=== PATIENT | female | born 1955 | race Caucasian/White ===

== ENCOUNTER → 2016-07-13 | Outpatient (CLI) | payer BC ==
[~2016-07-13] MED LIST: ATV5 PO; CALC500C70 PO; FEXO1TAB49 PO; FLUO20CA35 PO; GLUC10007 PO; MOME50SP5 NAE; OMEGCAP2 PO; OMEP40CA PO; ZNTT/150 PO
== END | disposition home or self-care (01) ==
LOC: C.LAB 13:23
PROVIDERS: ATTEND Orthopaedic Surgery
DX: Z47.1 Aftercare following joint replacement surgery (principal); Z96.643 Presence of artificial hip joint, bilateral

== ENCOUNTER → 2016-12-17 | Outpatient (CLI) | payer BC ==
--- NOTE | 2016-12-17 16:37 | DIAGNOSTIC IMAGING REPORT ---
PELVIS 1 OR 2 VIEW ROUTINE CLINICAL HISTORY: Fall. COMPARISON STUDY: Pelvis radiograph May 09, 2010. FINDINGS: There are stable postoperative findings consistent with bilateral hip resurfacing. Hardware is intact. No acute fracture is identified within the pelvis or hips. Sacroiliac joints and symphysis pubis are intact. IMPRESSION: 1. No acute fracture within the pelvis or hips. 2. Stable postoperative findings consistent with bilateral hip resurfacing. Electronically signed by: Cody Bergeron M.D. 12/17/2016 4:35 PM Dictated Date/Time: 12/17/2016 4:33 PM
== END | disposition home or self-care (01) ==
LOC: C.RAD 16:03
PROVIDERS: ATTEND Internal Medicine
DX: R10.2 Pelvic and perineal pain (principal); W19.XXXA Unspecified fall, initial encounter

== ENCOUNTER → 2017-03-22 | Day surgery (SDC) | payer BC ==
[2017-03-10 07:40] VITALS: Ht 168.9 cm; Wt 68.2 kg
[~2017-03-22] VITALS: Ht 168.9 cm; Wt 68.2 kg
[~2017-03-22] MED LIST changes: +AFRINWC; +ASCA500 PO; +ASPI81TA28 PO; +ATROPINE SULFATE 0.1 MG/ML 5ML SYR IV PRN; -ATV5 PO; +CYAN10005 PO; +DEXTCAP23 PO; +EpHEDrine SULFATE INJ 50 MG/ML AMP IV PRN; +FAMO40TA6 PO; +FENTANYL CITRATE INJ 50 MCG/1 ML 2 ML VIAL ONE; -FEXO1TAB49 PO; -FLUO20CA35 PO; +FLUO40CA8 PO; -GLUC10007 PO; +LIDOCAINE HCL 2% 2 ML VIAL (20MG/ML) ONE; +LORA-741 PO; +LOSA50TA54 PO; -MOME50SP5 NAE; +MOME6000 NEB; -OMEP40CA PO; +PROB1TAB16 PO; +PROPOFOL IV EMULSION 10 MG/ML 20 ML VIAL IV ONE; +PSEU60TA80 PO; +TRIA37.5 PO; +VNTHFA/IN INH; -ZNTT/150 PO
--- NOTE | 2017-03-22 15:03 | Endo History and Physical ---
History & Physical Date of Service: Mar 22, 2017. Chief Complaint: Cough, heartburn Referring Physician: Dr Scooby Marks History of Present Illness For EGD with Nieto placement Past Medical History Arthritis, Gastrointestinal Disorder, Anxiety, Reflux, Sleep Apnea, Depression Past Surgical History Hx Cardiac Surgery: No Hx Internal Defibrillator: No Hx Pacemaker: No Hx Abdominal Surgery: No Hx of Implantable Prosthesis: No Hx Post-Op Nausea and Vomiting: No Hx Cancer Surgery: No Hx Thoracic Surgery: No Hx Orthopedic: Yes (LT/RT HIP SURGERY, LT KNEE SCOPE) Hx Urinary Tract Surgery: No Family History Colon CA Social History Smoking Status: Never Smoker Hx Substance Use: No Hx Alcohol Use: Yes (1 DRINK ~5X/WEEK) Allergies Coded Allergies: Adhesives (Verified Allergy, Intermediate, SEVERE BLISTERS, 03/10/17) Cat Dander (Verified Allergy, Intermediate, BRONCHITIS, 03/10/17) NO KNOWN DRUG ALLERGIES (Verified Allergy, Unknown, ., 03/10/17) Latex1 -Allergic Contact Dermititis (Verified Adverse Reaction, Unknown, ITCHING, 03/10/17) Current Medications Reported Home Medications Medications Dose Route/Sig Max Daily Dose Days Date Category Dyazide 37.5MG/25MG (Triamterene/HCTZ) Cap 1 Cap PO DAILY 30 03/22/17 Reported Aspirin Ec (Aspirin) 81 Mg Tab 81 Mg PO DAILY 03/10/17 Reported Afrin 0.05% Nasal [place] (Oxymetazoline Hcl) 1 Btl [place] 1 [place] NA HS PRN 03/10/17 Reported Ventolin Hfa (Albuterol) 200 Puffs/16236 Mcg Aers 2-4 Puffs INH Q6H PRN 03/10/17 Reported Mucinex D (Pseudoephedrine-Guaifenesin) 1 Tab Tab 1 Tab PO BID PRN 03/10/17 Reported Coricidin Hbp Chest Conge (Dextromethorphan-Guaifenesin) 1 Cap Cap 1 Cap PO UD PRN 03/10/17 Reported Pepcid (Famotidine) 40 Mg Tab 40 Mg PO BID 03/10/17 Reported Probiotic (Probiotic Product) 1 Tab Tab 1 Tab PO DAILY 03/10/17 Reported Vitamin B-12 (Cyanocobalamin) 1,000 Mcg Tab 1,000 Mcg PO DAILY 03/10/17 Reported Vitamin C (Ascorbic Acid) 500 Mg Tab 1 Tab PO DAILY 03/10/17 Reported Cozaar (Losartan Potassium) 50 Mg Tab 50 Mg PO QAM 03/10/17 Reported Mometasone Furoate (Mometasone Furoate (Nasal)) 50 Mcg/Act Spr 2 [place] NEB DAILY PRN 03/10/17 Reported Ativan (Lorazepam) 0.5 Mg Tab 0.5 Mg PO Q6H PRN 03/10/17 Reported Prozac (Fluoxetine HCl) 40 Mg Cap 40 Mg PO QAM 03/10/17 Reported Fish Oil ([place]-3 Fatty Acids) 1 Cap Cap 1 Cap PO QAM 06/14/15 Reported Os-Faheem 500 Plus D (Calcium/Vitamin D) Tab 1 Tab PO BID 06/14/15 Reported Vital Signs Weight (Kilograms): 68.18 Height (Feet): 5 Height (Inches): 6.5 Physical Exam General Appearance: WD/WN Respiratory/Chest: Respiratory effort: no dyspnea Cardiovascular: Heart Auscultation: RRR Abdomen: Inspection & Palpation: soft Assessment and Plan Cough, heartburn for EGD with Nieto placement
--- NOTE | 2017-03-22 15:20 | Discharge Instructions ---
Endoscopy Patient Instructions Date / Procedure(s) Performed Mar 22, 2017. EGD Allergy Information Coded Allergies: Adhesives (Verified Allergy, Intermediate, SEVERE BLISTERS, 03/10/17) Cat Dander (Verified Allergy, Intermediate, BRONCHITIS, 03/10/17) NO KNOWN DRUG ALLERGIES (Verified Allergy, Unknown, ., 03/10/17) Latex1 -Allergic Contact Dermititis (Verified Adverse Reaction, Unknown, ITCHING, 03/10/17) Discharge Date / Findings Mar 22, 2017. Normal EGD with Nieto placement Medication Instructions Stopped Medication(s): Patient was told to hold her aspirin and antacids. Restart Stopped Medication(s): hold acid reducing meds for next 48 h Reported Home Medications Medications Dose Route/Sig Max Daily Dose Days Date Category Dyazide 37.5MG/25MG (Triamterene/HCTZ) Cap 1 Cap PO DAILY 30 03/22/17 Reported Aspirin Ec (Aspirin) 81 Mg Tab 81 Mg PO DAILY 03/10/17 Reported Afrin 0.05% Nasal [place] (Oxymetazoline Hcl) [address] [place] [address] [place] [address] NA HS PRN 03/10/17 Reported Ventolin Hfa (Albuterol) 200 Puffs/23271 Mcg Aers 2-4 Puffs INH Q6H PRN 03/10/17 Reported Mucinex D (Pseudoephedrine-Guaifenesin) 1 Tab Tab 1 Tab PO BID PRN 03/10/17 Reported Coricidin Hbp Chest Conge (Dextromethorphan-Guaifenesin) 1 Cap Cap 1 Cap PO UD PRN 03/10/17 Reported Pepcid (Famotidine) 40 Mg Tab 40 Mg PO BID 03/10/17 Reported Probiotic (Probiotic Product) 1 Tab Tab 1 Tab PO DAILY 03/10/17 Reported Vitamin B-12 (Cyanocobalamin) 1,000 Mcg Tab 1,000 Mcg PO DAILY 03/10/17 Reported Vitamin C (Ascorbic Acid) 500 Mg Tab 1 Tab PO DAILY 03/10/17 Reported Cozaar (Losartan Potassium) 50 Mg Tab 50 Mg PO QAM 03/10/17 Reported Mometasone Furoate (Mometasone Furoate (Nasal)) 50 Mcg/Act Spr [address] [place] [address] NEB DAILY PRN 03/10/17 Reported Ativan (Lorazepam) 0.5 Mg Tab 0.5 Mg PO Q6H PRN 03/10/17 Reported Prozac (Fluoxetine HCl) 40 Mg Cap 40 Mg PO QAM 03/10/17 Reported Fish Oil ([place]-3 Fatty Acids) 1 Cap Cap 1 Cap PO QAM 06/14/15 Reported Os-Faheem 500 Plus D (Calcium/Vitamin D) Tab 1 Tab PO BID 06/14/15 Reported Provider Instructions Activity Restrictions - No exercising or heavy lifting for 24 hours. - Do not drink alcohol the day of the procedure. - Do not drive a car or operate machinery until the day after the procedure. - Do not make any important decisions or sign important papers in 24 hours after the procedure. Following Day: - Return to full activity which may include returning to work/school. Diet Start your diet with liquids and light foods (jello, soup, juice, toast). Then eat your usual diet if not nauseated. Treatment For Common After Affects For mild abdominal pain, bloating, or excessive gas: - Rest - Eat lightly - Lie on right side Follow-Up Information Follow-up with Dr. Scooby Marks as scheduled Anesthesia Information What You Should Know You have had a procedure that required some medicine to reduce anxiety and discomfort. This treatment is called moderate sedation. After receiving the treatment, you may be sleepy, but you will be able to breathe on your own. The effects of the treatment may last for several hours. Follow these instructions along with Activity/Diet recommendations noted above: * Do NOT do anything where dizziness or clumsiness would be dangerous. * Rest quietly at home today, then you can be up and about tomorrow. * Have a responsible person stay with you the rest of today. * You may have had an I.V. today. If so, you may take the dressing off later today. Recommendations Call your doctor if: * Trouble breathing * Continuous vomiting for more than 24 hours * Temperature above 101 degrees * Severe abdominal pain or bloating * Pain not relieved by pain medicine ordered * There is increased drainage or redness from any incision * A large amount of rectal bleeding greater than 2-3 tablespoons. (If you had a polyp/s removed or have hemorrhoids, a small amount of blood - from the rectum is to be expected.) * You have any unanswered questions or concerns. IN THE EVENT OF A SERIOUS EMERGENCY, GO TO THE NEAREST EMERGENCY ROOM Your discharge instructions were prepared by provider Alexis Madrigal. Patient Instructions Signature Page Marlena Staleyer Patient (or Guardian) Signature/Date: I have read and understand the instructions given to me by my caregivers. Caregiver/RN/Doctor Signature/Date: The above-named patient and/or guardian has received patient instructions on this date. + Original Patient Signature Page (only) stays with chart. Please make copy for patient.
--- NOTE | 2017-03-22 15:24 | GI REPORT ---
Procedure Date: 03/22/2017 3:08 PM Procedure: Upper GI endoscopy Indications: Heartburn, Chronic cough Medicines: Fentanyl 100 micrograms IV, Propofol total dose 150 mg IV, Lidocaine 40 mg IV Complications: No immediate complications. Estimated Blood Loss: Estimated blood loss: none. Procedure: Pre-Anesthesia Assessment: - Prior to the procedure, a History and Physical was performed, and patient medications, allergies and sensitivities were reviewed. The patient's tolerance of previous anesthesia was reviewed. - The risks and benefits of the procedure and the sedation options and risks were discussed with the patient. All questions were answered and informed consent was obtained. After obtaining informed consent, the endoscope was passed under direct vision. Throughout the procedure, the patient's blood pressure, pulse, and oxygen saturations were monitored continuously. The scope was introduced through the mouth, and advanced to the second part of duodenum. The upper GI endoscopy was accomplished without difficulty. The patient tolerated the procedure well. Findings: The Z-line was regular and was found 40 cm from the incisors. The COOK capsule with delivery system was introduced through the mouth and advanced into the esophagus, such that the COOK pH capsule was positioned 34 cm from the incisors, which was 6 cm proximal to the GE junction. The COOK pH capsule was then deployed and attached to the esophageal mucosa. The delivery system was then withdrawn. Endoscopy was utilized for probe placement and diagnostic evaluation. The entire examined stomach was normal. The examined duodenum was normal. Impression: - Z-line regular, 40 cm from the incisors. - Normal stomach. - Normal examined duodenum. - The COOK pH capsule was deployed. - No specimens collected. Recommendation: - Discharge patient to home (ambulatory). - Discontinue Prilosec (omeprazole) for 48 h. - Return to primary care physician MITRAN. Alexis Madrigal M.D. Alexis Madrigal MD 03/22/2017 3:24:05 PM This report has been signed electronically. Note Initiated On: 03/22/2017 3:08 PM I attest to the content of the Intraoperative Record and orders documented therein, exceptions below
--- NOTE | 2017-03-22 15:25 | Anesthesiology Progress Note ---
Anesthesia Post Op Note Date & Time Mar 22, 2017 at 15:25 Vital Signs Pain Intensity: 0 Vital Signs Past 12 Hours Date Time Temp Pulse Resp B/P (MAP) Pulse Ox O2 Delivery O2 Flow Rate FiO2 03/22/17 14:58 36.7 62 18 145/93 (110) 94 Room Air Notes Mental Status: alert / awake / arousable, participated in evaluation Pt Amnestic to Procedure: Yes Nausea / Vomiting: adequately controlled Pain: adequately controlled Airway Patency, RR, SpO2: stable & adequate BP & HR: stable & adequate Hydration State: stable & adequate Anesthetic Complications: no major complications apparent
[2017-03-22 15:52] VITALS: BP 138/91; PULSE 50; TEMP 36.7; O2SAT 98
== END | disposition home or self-care (01) ==
LOC: C.GI 14:16
PROVIDERS: ATTEND Internal Medicine Gastroenterology
DX: K21.9 Gastro-esophageal reflux disease without esophagitis (principal); G47.33 Obstructive sleep apnea (adult) (pediatric); F41.9 Anxiety disorder, unspecified; F32.9 Major depressive disorder, single episode, unspecified; M19.90 Unspecified osteoarthritis, unspecified site; Z80.0 Family history of malignant neoplasm of digestive organs; Z79.82 Long term (current) use of aspirin; Z79.899 Other long term (current) drug therapy